=== PATIENT | male | born 1970 | race Caucasian/White ===

== ENCOUNTER 2016-10-20 05:04 | Emergency (ER) | payer OTHER ==
[~2016-10-20] VITALS: Ht 180.3 cm; Wt 94.0 kg
[2016-10-20 05:10] VITALS: Ht 180.3 cm; Wt 94.0 kg
[2016-10-20] MEDS ORDERED: LIDOCAINE/MYLANTA 40 ML BTL PO STA (06:09)
[2016-10-20] MEDS ORDERED: BELLADONNA/PHENOBARBITAL TAB PO STA (06:09)
[2016-10-20 06:25] LABS: ADD SCAN DIFF NO
--- NOTE | 2016-10-20 06:26 | ERD ---
ER Documentation Chief Complaint Date/Time DATE: 10/20/16 TIME: 06:15 Chief Complaint PT C/O EPIGASTRIC CP X 3 DAYS W/SOB (RR EVEN/UNLABORED, NAD) HPI This is a 46-year-old male who presents with gradual onset, sharp, moderate epigastric pain for 3 days. The patient states that the pain has been constant since onset, but improved significantly when he stands up and walks. The pain is exacerbated by lying down. Pain radiates up to the mid substernal area and down to the lower abdomen bilaterally. Patient also complains of mild pain in the back. Patient states that he feels short of breath, has felt slightly nauseous for the last hour and had subjective fever for the last hour. The pain has been more severe since 7 hours ago. Patient denies vomiting, diarrhea , constipation. He does acknowledge a bitter taste in his mouth. According to the patient's friend, the patient has been complaining of abdominal pain for more than 2 weeks intermittently. ROS All systems reviewed and are negative except as per history of present illness. Medications Home Meds Active Scripts Tramadol HCl (Tramadol HCl) 50 Mg Tablet, 50 MG PO Q6 Y for PAIN, #20 TAB Prov:EMILY LAURA MD 10/20/16 Famotidine* (Pepcid*) 20 Mg Tablet, 20 MG PO BID, #30 TAB Prov:EMILY LAURA MD 10/20/16 Allergies Allergies: Coded Allergies: No Known Allergy (Unverified , 10/20/16) PMhx/Soc Past medical history: None Past surgical history: Left upper extremity Social history: Denies tobacco alcohol or illicit drugs Medical and Surgical Hx: pt denies Medical Hx, pt denies Surgical Hx Smoking Status: Never smoker FmHx Family History: No coronary disease, No diabetes Physical Exam Vitals Vital Signs Date Time Temp Pulse Resp B/P Pulse Ox O2 Delivery O2 Flow Rate FiO2 10/20/16 05:10 96.0 71 18 136/89 99 Physical Exam Const: Alert, no acute distress Head: Atraumatic Eyes: Normal Conjunctiva, no pallor or icterus ENT: Normal External Ears, Nose and Mouth. Neck: Full range of motion. No JVD. No meningismus. Resp: Clear to auscultation bilaterally, no wheezes, no rales Cardio: Regular rate and rhythm, no murmurs Abd: Soft, non tender, non distended. Normal bowel sounds Skin: No petechiae or rashes Back: No midline or flank tenderness Ext: No cyanosis, or edema Neur: Awake and alert, cranial nerves II through XII intact bilaterally, patient moves and feels 4 extremities appropriately Psych: Normal Mood and Affect Result Diagram: 10/20/16 0550 10/20/16 0550 Results 24 hrs Laboratory Tests Test 10/20/16 05:50 10/20/16 08:15 White Blood Count 16.110^3/ul Red Blood Count 4.9410^6/ul Hemoglobin 14.6g/dl Hematocrit 41.7% Mean Corpuscular Volume 84.4fl Mean Corpuscular Hemoglobin 29.6pg Mean Corpuscular Hemoglobin Concent 35.0g/dl Red Cell Distribution Width 12.6% Platelet Count 50309^3/UL Mean Platelet Volume 10.3fl Neutrophils % 82.6% Lymphocytes % 11.5% Monocytes % 4.3% Eosinophils % 0.4% Basophils % 0.6% Nucleated Red Blood Cells % 0.0/100WBC Neutrophils # 13.310^3/ul Lymphocytes # 1.910^3/ul Monocytes # 0.710^3/ul Eosinophils # 0.110^3/ul Basophils # 0.110^3/ul Nucleated Red Blood Cells # 0.010^3/ul Prothrombin Time 12.4Sec Prothrombin Time Ratio 1.0 INR International Normalized Ratio 0.92 Sodium Level 142mmol/L Potassium Level 3.7mmol/L Chloride Level 101mmol/L Carbon Dioxide Level 26mmol/L Anion Gap 19 Blood Urea Nitrogen 16mg/dl Creatinine 1.23mg/dl Glucose Level 150mg/dl Calcium Level 9.6mg/dl Total Bilirubin 0.5mg/dl Direct Bilirubin 0.00mg/dl Indirect Bilirubin 0.5mg/dl Aspartate Amino Transf (AST/SGOT) 53IU/L Alanine Aminotransferase (ALT/SGPT) 122IU/L Alkaline Phosphatase 142IU/L Troponin I < 0.012ng/ml Total Protein 9.2g/dl Albumin 4.7g/dl Globulin 4.50g/dl Albumin/Globulin Ratio 1.04 Lipase 91U/L Urine Color LT. YELLOW Urine Clarity CLEAR Urine pH 8.0 Urine Specific [place] 1.015 Urine Ketones NEGATIVE Urine Nitrite NEGATIVE Urine Bilirubin NEGATIVE Urine Urobilinogen 0.2 E.U./dL Urine Leukocyte Esterase NEGATIVE Urine Microscopic RBC 2-5/HPF Urine Microscopic WBC NONE SEEN/HPF Urine Epithelial Cells OCCASIONAL Urine Bacteria RARE Urine Hemoglobin TRACE Urine Glucose NEGATIVE% Urine Total Protein 1+ Current Medications Medications (Trade) Dose Ordered Sig/Mateo Route PRN Reason Start Time Stop Time Status Last Admin Dose Admin Miscellaneous Medication (Gi Cocktail (2)) 40 ml ONCE STAT PO 10/20/16 06:09 10/20/16 06:11 DC 10/20/16 06:16 Bell[place]onna/ Phenobarbital () 2 tab ONCE STAT PO 10/20/16 06:09 10/20/16 06:11 DC 10/20/16 06:16 Acetaminophen (Tylenol Tab) 1,000 mg ONCE STAT PO 10/20/16 07:26 10/20/16 07:27 DC 10/20/16 07:43 Procedures/MDM EKG read by me: Time 518, rate 58 Rhythm: Sinus bradycardia [place]: Normal Intervals: Normal ST-T waves: no ischemic changes Ectopy: No Q-waves: No Impression: No evidence of ischemia or arrhythmia Chest x-ray: No infiltrate, see EMR for full interpretation Gallbladder ultrasound: Gallstones. Normal common bile duct, no signs of cholecystitis. MDM: Patient is a 46-year-old male who presents with epigastric pain that is intermittent for the last 2 weeks. Patient had an episode this morning that was more severe. She states that radiates both down to the lower abdomen and up into the chest, and there are features that are suggestive of GERD-like symptoms. Patient has normal vital signs. EKG is unremarkable and troponin is negative. The patient had slightly elevated LFTs so a gallbladder ultrasound was performed and shows evidence of gallstones without evidence of cholecystitis or choledocholithiasis. Chest x-ray does not show any concerning acute pathology. Serial abdominal exams are benign, and vascular exam is normal. On reassessment the patient appears significantly improved but complains of mild residual pain. I do believe that the patient's symptoms are consistent with biliary colic. I will give him prescription for tramadol and Pepcid for symptom control, have advised him on dietary changes, and have advised him on the importance of follow-up with surgery for elective cholecystectomy. I have also advised him on return precautions for symptoms concerning for cholecystitis. Departure Diagnosis: Primary Impression: Biliary colic Condition: EMILY Hazel MD Oct 20, 2016 06:25
[2016-10-20 06:37] LABS: BASOPHIL # 0.1 10^3/ul (0.0-0.1); BASOPHILS % 0.6 % (0.0-2.0); EOSINOPHILS # 0.1 10^3/ul (0.0-0.5); EOSINOPHILS % 0.4 % (0.0-7.0); HEMATOCRIT 41.7 % (42.0-52.0); HEMOGLOBIN 14.6 g/dl (14.0-18.0); LYMPHOCYTES # 1.9 10^3/ul (0.8-2.9); LYMPHOCYTES % 11.5 % (15.0-51.0); MEAN CORPUSCULAR HEMOGLOBIN 29.6 pg (29.0-33.0); MEAN CORPUSCULAR VOLUME 84.4 fl (82.0-101.0); MEAN PLATELET VOLUME 10.3 fl (7.4-10.4); MONOCYTE # 0.7 10^3/ul (0.3-0.9); MONOCYTES % 4.3 % (0.0-11.0); NEUTROPHIL # 13.3 10^3/ul (1.6-7.5); NEUTROPHILS % 82.6 % (39.0-77.0); PLATELET COUNT 325 10^3/UL (140-415); RED BLOOD COUNT 4.94 10^6/ul (4.70-6.10); RED CELL DISTRIBUTION WIDTH 12.6 % (11.5-14.5); WHITE BLOOD COUNT 16.1 10^3/ul (4.8-10.8)
[2016-10-20 06:48] LABS: ALBUMIN 4.7 g/dl (3.3-4.9); CHLORIDE 101 mmol/L (97-110)
[2016-10-20 06:49] LABS: INR 0.92; POTASSIUM 3.7 mmol/L (3.5-5.1); PROTIME 12.4 Sec (12.2-14.2); SODIUM 142 mmol/L (135-144)
[2016-10-20 06:51] LABS: ALBUMIN/GLOBULIN RATIO 1.04; ALKALINE PHOSPHATASE 142 IU/L (42-121); ANION GAP 19 (8-16); ASPARTATE AMINO TRANSFERASE 53 IU/L (15-46); BILIRUBIN,INDIRECT 0.5 mg/dl (0-1.1); BILIRUBIN,TOTAL 0.5 mg/dl (0.2-1.3); BLOOD UREA NITROGEN 16 mg/dl (7-20); CARBON DIOXIDE 26 mmol/L (21-31); CREATININE 1.23 mg/dl (0.61-1.24); GLUCOSE 150 mg/dl (70-220); TOTAL PROTEIN 9.2 g/dl (6.1-8.1)
[2016-10-20 06:52] LABS: ALANINE AMINOTRANSFERASE 122 IU/L (13-69); CALCIUM 9.6 mg/dl (8.4-10.2)
[2016-10-20 07:04] LABS: TROPONIN-I < 0.012 ng/ml (0.00-0.12)
--- NOTE | 2016-10-20 07:17 | RADRPT ---
PROCEDURE: XR Chest. CLINICAL INDICATION: Chest pain TECHNIQUE: Portable single view of the chest COMPARISON: None. FINDINGS: The heart size is top normal. Lung volumes are reduced. Prominent paratracheal soft tissues may be due to ectatic vasculature or shallow lung inflation. No definite acute infiltrate or pleural effu shayne. No bony abnormality is seen. IMPRESSION: Shallow lung inflation. No definite acute infiltrate. Prominent paratracheal soft tissues which ma y be due to shallow lung inflation or ectatic vasculature. Eventual PA and lateral views would be s uggested. RPTAT: HLBE Physician Micki Date Time Electronically viewed and signed by Bianka Pineda Physician on 10/20/2016 07:17 LE/
[2016-10-20] MEDS ORDERED: ACETAMINOPHEN 500 MG TAB PO STA (07:26)
[2016-10-20 08:29] LABS: ADD UMIC YES; URINE BILIRUBIN (Dip) NEGATIVE (NEGATIVE); URINE BLOOD (Dip) TRACE (NEGATIVE); URINE COLOR LT. YELLOW (YELLOW); URINE GLUCOSE (Dip) NEGATIVE (NEGATIVE); URINE KETONES (Dip) NEGATIVE (NEGATIVE); URINE LEUKOCYTE ESTERASE (Dip) NEGATIVE (NEGATIVE); URINE NITRITE (Dip) NEGATIVE (NEGATIVE); URINE TOTAL PROTEIN (Dip) 1+ (NEGATIVE); URINE UROBILINOGEN (Dip) 0.2 E.U./dL (0.1-1.0)
[2016-10-20 08:53] LABS: BACTERIA,URINE RARE
--- NOTE | 2016-10-20 09:36 | RADRPT ---
PROCEDURE: US Abdomen. CLINICAL INDICATION: Pain TECHNIQUE: Multiple real-time images were acquired of the patient's abdomen and retroperitoneum ut ilizing a high resolution transducer. COMPARISON: None FINDINGS: The liver demonstrates elevated echogenicity with no gross focal lesions are seen. Multiple gallston es are seen layering within the gallbladder. There is no pericholecystic fluid or gallbladder wall t hickening. No intra or extrahepatic biliary dilatation is seen. The common bile duct measures 5 mm in maximal dimension. The pancreas is obscured. No free fluid is identified. The right kidney is unremarkable without hydronephrosis. It measures 10.8 cm. Visualized portion of the aorta and IVC are unremarkable. IMPRESSION: There is fatty infiltration of the liver. Cholelithiasis without cholecystitis. RPTAT: AA .Jaja Cintron MD, MD Date Time Electronically viewed and signed by .Jaja Cintron MD, MD on 10/20/2016 09:36 .Christiana/
[2016-10-20] MEDS ORDERED: TRAM50TA2 PO (10:18)
[2016-10-20] MEDS ORDERED: FAMO-18 PO (10:18)
[2016-10-20 11:15] VITALS: BP 117/65; PULSE 77; RESP 16
== END 2016-10-20 11:20 | disposition home or self-care (01) ==
LOC: E/R 05:04
DX: K80.50 Calculus of bile duct without cholangitis or cholecystitis without obstruction (principal)
CPT/HCPCS: 36415; 71010; 76705; 80053; 81001; 83690; 84484; 85025; 85610; 93005; Z7502; Z7610; 81003

== ENCOUNTER 2016-10-25 18:32 | Emergency (ER) | payer OTHER ==
[~2016-10-25] VITALS: Ht 180.3 cm; Wt 90.0 kg
[~2016-10-25 18:32] MED LIST: FAMO-18 PO; TRAM50TA2 PO
[2016-10-25 18:44] VITALS: Ht 180.3 cm; Wt 90.0 kg
[2016-10-25] MEDS ORDERED: SOD CHLORIDE 0.9% 1,000 ML IV STA (19:24)
[2016-10-25 20:14] LABS: ADD UMIC YES; URINE BILIRUBIN (Dip) NEGATIVE (NEGATIVE); URINE BLOOD (Dip) 2+ (NEGATIVE); URINE COLOR YELLOW (YELLOW); URINE GLUCOSE (Dip) NEGATIVE (NEGATIVE); URINE KETONES (Dip) NEGATIVE (NEGATIVE); URINE LEUKOCYTE ESTERASE (Dip) NEGATIVE (NEGATIVE); URINE NITRITE (Dip) NEGATIVE (NEGATIVE); URINE TOTAL PROTEIN (Dip) 2+ (NEGATIVE); URINE UROBILINOGEN (Dip) 0.2 E.U./dL (0.1-1.0)
[2016-10-25 20:21] LABS: URINE RBCS 0-2 /HPF (0)
--- NOTE | 2016-10-25 20:29 | RADRPT ---
PROCEDURE: CT Abdomen and Pelvis without contrast. CLINICAL INDICATION: Abdominal pain TECHNIQUE: CT of the abdomen and pelvis was performed on a multi-detector scanner without IV contr ast. Coronal and sagittal images were reformatted from the axial data set. One or more of the foll owing dose reduction techniques were used: automated exposure control, adjustment of the mA and/or kV according to patient size, use of iterative reconstruction technique. CTDI = 16.49 mGy. DLP = 10 44.85 mGy-cm. COMPARISON: None. FINDINGS: CT abdomen: The lung bases are clear. The heart size is normal, without pericardial effusion. Hepatomegaly (19 cm) and hepatic fatty infiltration are noted, without evidence of focal mass. Gallbladder wall thi ckening is noted, with suggestion of trace pericholecystic edema. Biliary tree, pancreas, spleen, a drenal glands and kidneys are unremarkable. No urolithiasis or obstructive uropathy is identified. The stomach is grossly unremarkable. The aorta is of normal caliber. There is no retroperitoneal lymphadenopathy. The nikkie hepatis reg ion is clear. CT pelvis: No bowel obstruction, free intraperitoneal air or abscess is identified. The appendix is well visua lized and normal. There is no diverticulosis, diverticulitis or colitis. Urinary bladder is grossl y unremarkable. No pelvic mass, free fluid or lymphadenopathy is identified. The surrounding osseous structures are remarkable for degenerative spondylosis of the spine. No ost eolytic or osteoblastic lesion is detected. IMPRESSION: 1. Gallbladder wall is thickened, with question of trace pericholecystic edema - cholecystitis is n ot excluded. Consider ultrasound and/or nuclear medicine HIDA scan for further evaluation. 2. Hepatic steatosis and hepatomegaly are noted. 3. No mass or lymphadenopathy is identified. RPTAT: HDWR .Kristian Joe MD, Date Time Electronically viewed and signed by .Kristian Joe MD, MD on 10/25/2016 20:28 .R/
--- NOTE | 2016-10-25 20:35 | ERD ---
ER Documentation Chief Complaint Date/Time DATE: 10/25/16 TIME: 20:35 Chief Complaint MID ABDOMINAL PAIN X 2 WEEKS + NAUSEA, SENT BY MD ANTOINE This a 46-year-old male who presents to the emergency department today with his complaining of generalized abdominal pain. Patient states that he was seen by his primary care doctor at [facility], Nitin Crews MD and sent here to the emergency department for further evaluation and management. Patient's medical record from the [facility] show that the patient was diagnosed with gastroenteritis versus gastritis. Patient indicated that was requesting a CT scan for further evaluation. Patient states that this complaints and his stomach feel worse and that the doctor does not feel that the abdominal pain is related to his gallstones. Patient states that he has "lost 10 pounds in 4 days". States that he has a hard time eating solids but has been drinking liquids and soup. States that he sometimes feels dizzy. States that he has been having diarrhea. He has some nausea but no vomiting. States he has not taken the tramadol or Zofran that he was prescribed on his last visit. Denies any fevers or chills. ROS All systems reviewed and are negative except as per history of present illness. Medications Home Meds Active Scripts Ondansetron Hcl* (Zofran*) 4 Mg Tablet, 4 MG PO Q6H for NAUSEA AND/OR VOMITING, #30 TAB Prov:MARTIN SCHREIBER PA-C 10/25/16 Dicyclomine Hcl* (Bentyl*) 10 Mg Capsule, 10 MG PO QID, #30 CAP Prov:MARTIN SCHREIBER PA-C 10/25/16 Tramadol HCl (Tramadol HCl) 50 Mg Tablet, 50 MG PO Q6 Y for PAIN, #20 TAB Prov:EMILY LAURA MD 10/20/16 Famotidine* (Pepcid*) 20 Mg Tablet, 20 MG PO BID, #30 TAB Prov:EMILY LAURA MD 10/20/16 Allergies Allergies: Coded Allergies: No Known Allergy (Unverified , 10/20/16) PMhx/Soc Hx Alcohol Use: No Hx Substance Use: No Hx Tobacco Use: No Smoking Status: Never smoker Physical Exam Vitals Vital Signs Date Time Temp Pulse Resp B/P Pulse Ox O2 Delivery O2 Flow Rate FiO2 10/25/16 18:44 98.2 98 16 150/86 96 Physical Exam Const: Nontoxic-appearing Head: Atraumatic Eyes: Normal Conjunctiva ENT: Normal External Ears, Nose and Mouth. Neck: Full range of motion..~ No meningismus. Resp: Clear to auscultation bilaterally Cardio: Regular rate and rhythm, no murmurs Abd: Soft, mild generalized abdominal tenderness that is nonspecific non distended. Normal bowel sounds. No tenderness McBurney's. No rebound tenderness. Mild epigastric tenderness. Skin: No petechiae or rashes Back: No midline or flank tenderness Ext: No cyanosis, or edema Neur: Awake and alert Psych: Normal Mood and Affect Result Diagram: 10/25/16194410/25/161944 Results 24 hrs Laboratory Tests Test 10/25/16 19:45 White Blood Count 7.210^3/ul Red Blood Count 5.1510^6/ul Hemoglobin 15.3g/dl Hematocrit 43.7% Mean Corpuscular Volume 84.9fl Mean Corpuscular Hemoglobin 29.7pg Mean Corpuscular Hemoglobin Concent 35.0g/dl Red Cell Distribution Width 12.6% Platelet Count 25646^3/UL Mean Platelet Volume 10.1fl Neutrophils % 63.5% Lymphocytes % 21.4% Monocytes % 13.0% Eosinophils % 1.2% Basophils % 0.3% Nucleated Red Blood Cells % 0.0/100WBC Neutrophils # 4.610^3/ul Lymphocytes # 1.610^3/ul Monocytes # 0.910^3/ul Eosinophils # 0.110^3/ul Basophils # 0.010^3/ul Nucleated Red Blood Cells # 0.010^3/ul Urine Color YELLOW Urine Clarity CLEAR Urine pH 5.5 Urine Specific [place] >=1.030 Urine Ketones NEGATIVE Urine Nitrite NEGATIVE Urine Bilirubin NEGATIVE Urine Urobilinogen 0.2 E.U./dL Urine Leukocyte Esterase NEGATIVE Urine Microscopic RBC 0-2/HPF Urine Microscopic WBC 0-2/HPF Urine Hyaline Casts OCCASIONAL Urine Hemoglobin 2+ Urine Glucose NEGATIVE% Urine Total Protein 2+ Sodium Level 137mmol/L Potassium Level 3.6mmol/L Chloride Level 105mmol/L Carbon Dioxide Level 19mmol/L Anion Gap 17 Blood Urea Nitrogen 14mg/dl Creatinine 1.32mg/dl Glucose Level 117mg/dl Calcium Level 9.2mg/dl Total Bilirubin 0.4mg/dl Direct Bilirubin 0.00mg/dl Indirect Bilirubin 0.4mg/dl Aspartate Amino Transf (AST/SGOT) 66IU/L Alanine Aminotransferase (ALT/SGPT) 190IU/L Alkaline Phosphatase 200IU/L Total Protein 9.1g/dl Albumin 4.5g/dl Globulin 4.60g/dl Albumin/Globulin Ratio 0.97 Lipase 122U/L Current Medications Medications (Trade) Dose Ordered Sig/Mateo Route PRN Reason Start Time Stop Time Status Last Admin Dose Admin Sodium Chloride (NS) 1,000 ml @ 1,000 mls/hr Q1H STAT IV 10/25/16 19:24 10/25/16 20:23 DC 10/25/16 20:06 DIAGNOSTIC IMAGING REPORT Patient: KLAUDIA REESE : 1970 Age: 46 Sex: M MR #: [id number] DOS: 10/25/161923 Ordering MD: MARTIN SCHREIBER PA-C Location: E Room/Bed: PROCEDURE: CT Abdomen and Pelvis without contrast. CLINICAL INDICATION: Abdominal pain TECHNIQUE: CT of the abdomen and pelvis was performed on a multi-detector scanner without IV contrast. Coronal and sagittal images were reformatted from the axial data set. One or more of the following dose reduction techniques were used: automated exposure control, adjustment of the mA and/or kV according to patient size, use of iterative reconstruction technique. CTDI = 16.49 mGy. DLP = 1044.85 mGy-cm. COMPARISON: None. FINDINGS: CT abdomen: The lung bases are clear. The heart size is normal, without pericardial effusion. Hepatomegaly (19 cm) and hepatic fatty infiltration are noted, without evidence of focal mass. Gallbladder wall thickening is noted, with suggestion of trace pericholecystic edema. Biliary tree, pancreas, spleen, adrenal glands and kidneys are unremarkable. No urolithiasis or obstructive uropathy is identified. The stomach is grossly unremarkable. The aorta is of normal caliber. There is no retroperitoneal lymphadenopathy. The nikkie hepatis region is clear. CT pelvis: No bowel obstruction, free intraperitoneal air or abscess is identified. The appendix is well visualized and normal. There is no diverticulosis, diverticulitis or colitis. Urinary bladder is grossly unremarkable. No pelvic mass, free fluid or lymphadenopathy is identified. The surrounding osseous structures are remarkable for degenerative spondylosis of the spine. No osteolytic or osteoblastic lesion is detected. IMPRESSION: 1. Gallbladder wall is thickened, with question of trace pericholecystic edema - cholecystitis is not excluded. Consider ultrasound and/or nuclear medicine HIDA scan for further evaluation. 2. Hepatic steatosis and hepatomegaly are noted. 3. No mass or lymphadenopathy is identified. RPTAT: HDWR .Kristian Joe MD, MD Date Time Electronically viewed and signed by .Kristian Joe MD, MD on 10/25/2016 20: 28 .R/ CC: MARTIN SCHREIBER PA-C DIAGNOSTIC IMAGING REPORT Patient: KLAUDIA REESE : 1970 Age: 46 Sex: M MR #: [id number] DOS: 10/25/16 0000 Ordering MD: MARTIN SCHREIBER PA-C Location: FTE Room/Bed: PROCEDURE: Right upper quadrant abdominal ultrasound. CLINICAL INDICATION: Abdominal pain TECHNIQUE: Salvador scale and color doppler ultrasound images of the right upper quadrant. COMPARISON: CT abdomen pelvis 10/25/2016, abdominal ultrasound 10/20/2016 FINDINGS: Pancreas: Visualized portions appear of normal echogenicity, no focal lesions. Liver: Morphology: Mildly enlarged measuring 17.8 cm. Echogenicity: Increased echogenicity of the liver parenchyma suggestive of hepatic steatosis. Focal lesions: None. Main portal vein: Patent with hepatopetal flow. Biliary System: Gallbladder appears contracted with wall thickness measuring the upper limits of normal at 3 mm. Gallbladder appears filled with gallstones. No intrahepatic biliary dilatation. Common bile duct measures 4.6 mm in maximal dimension. Kidneys: Right 10.7 cm in length. Right renal cortical thickness is preserved. Normal echogenicity. No hydronephrosis. No renal calculi. No focal lesions. No free fluid identified. IMPRESSION: Gallbladder is filled with gallstones. Gallbladder wall thickness is upper limits of normal; early cholecystitis is not completely excluded. If clinical concern for cholecystitis HIDA scan may be useful for further evaluation. Normal caliber intrahepatic and extrahepatic biliary system. RPTAT: AADD .Neto Lauren MD, Date Time Electronically viewed and signed by .Neto Lauren MD, MD on 10/25/2016 21:02 .B/ CC: MARTIN SCHREIBER PA-C Procedures/[facility] This a 46-year-old male who presents to the emergency department today complaining of generalized abdominal discomfort, weight loss of "10 pounds in 4 days", diarrhea and some nausea. Patient was seen here on October 20, 2016 a proximal he 1 week ago and had a full workup at that time given his complaints of epigastric pain. His EKG was negative. His laboratory work showed some elevated LFTs and therefore the decision ordered a ultrasound that showed gallstones with no acute cholecystitis. Patient was diagnosed with biliary colic and was discharged home with tramadol and Pepcid. Given that patient was sent here by his primary care doctor I did obtain laboratory work as well as imaging. Laboratory work shows no elevated white blood cell count. He is not anemic. Platelets are within normal limits. Electrolytes are within normal limits. Glucose within normal limits. Liver function is elevated from previous visit approximately 1 week ago. Lipase within normal limits. UA is negative for infection CT abdomen pelvis shows gallbladder wall thickened with question of trace pericholecystic edema. Cholecystitis cannot be excluded. There is hepatic steatosis hepatomegaly noted. There is no mass or lymphadenopathy. There is no bowel obstruction, free air or abscess. Appendix is well-visualized. There is no diverticulosis diverticulitis or colitis. Right upper quadrant ultrasound shows that the gallbladder is filled with gallstones. The gallbladder wall thickness is upper limits of normal. An early cholecystitis cannot be completely excluded. There is no intrahepatic biliary dilatation. There is no free fluid identified. Patient abdominal pain that is centrally located is of uncertain etiology however it is most likely related to his gallstones and biliary colic. Patient was given IV fluids here in the emergency department given his complaints of feeling weak. Patient was not really complaining of any pain was not given any pain medication and in fact declined it prior to discharge. I have explained all results to the patient did have explained to him that he does need to see a general surgeon to have his gallbladder removed. I have explained to him he does need to follow back up with his primary care doctor in regards to this with all of his information. I instructed the patient to take the tramadol at home if he had any pain. He was given a prescription for Zofran and Bentyl. Discussed the patient with Dr. Lowe and he is in agreement with the plan. Departure Diagnosis: Primary Impression: Biliary colic Condition: Fair MARTIN SCHREIBER PA-C October 25, 2016 20:35
[2016-10-25 20:41] LABS: ADD SCAN DIFF NO
[2016-10-25 20:43] LABS: BASOPHILS % 0.3 % (0.0-2.0); EOSINOPHILS # 0.1 10^3/ul (0.0-0.5); EOSINOPHILS % 1.2 % (0.0-7.0); HEMATOCRIT 43.7 % (42.0-52.0); HEMOGLOBIN 15.3 g/dl (14.0-18.0); LYMPHOCYTES # 1.6 10^3/ul (0.8-2.9); LYMPHOCYTES % 21.4 % (15.0-51.0); MEAN CORPUSCULAR HEMOGLOBIN 29.7 pg (29.0-33.0); MEAN CORPUSCULAR VOLUME 84.9 fl (82.0-101.0); MEAN PLATELET VOLUME 10.1 fl (7.4-10.4); MONOCYTE # 0.9 10^3/ul (0.3-0.9); NEUTROPHIL # 4.6 10^3/ul (1.6-7.5); NEUTROPHILS % 63.5 % (39.0-77.0); PLATELET COUNT 320 10^3/UL (140-415); RED BLOOD COUNT 5.15 10^6/ul (4.70-6.10); RED CELL DISTRIBUTION WIDTH 12.6 % (11.5-14.5); WHITE BLOOD COUNT 7.2 10^3/ul (4.8-10.8)
--- NOTE | 2016-10-25 21:02 | RADRPT ---
PROCEDURE: Right upper quadrant abdominal ultrasound. CLINICAL INDICATION: Abdominal pain TECHNIQUE: Salvador scale and color doppler ultrasound images of the right upper quadrant. COMPARISON: CT abdomen pelvis 10/25/2016, abdominal ultrasound 10/20/2016 FINDINGS: Pancreas: Visualized portions appear of normal echogenicity, no focal lesions. Liver: Morphology: Mildly enlarged measuring 17.8 cm. Echogenicity: Increased echogenicity of the liver parenchyma suggestive of hepatic steatosis. Focal lesions: None. Main portal vein: Patent with hepatopetal flow. Biliary System: Gallbladder appears contracted with wall thickness measuring the upper limits of normal at 3 mm. Gallbladder appears filled with gallstones. No intrahepatic biliary dilatation. Common bile duct measures 4.6 mm in maximal dimension. Kidneys: Right 10.7 cm in length. Right renal cortical thickness is preserved. Normal echogenicity. No hydronephrosis. No renal calculi. No focal lesions. No free fluid identified. IMPRESSION: Gallbladder is filled with gallstones. Gallbladder wall thickness is upper limits of normal; early cholecystitis is not completely excluded . If clinical concern for cholecystitis HIDA scan may be useful for further evaluation. Normal caliber intrahepatic and extrahepatic biliary system. RPTAT: AADD .Neto Lauren MD, MD Date Time Electronically viewed and signed by .Neto Lauren MD, on 10/25/2016 21:02 .B/
[2016-10-25 21:05] LABS: ALBUMIN 4.5 g/dl (3.3-4.9); ALBUMIN/GLOBULIN RATIO 0.97; BILIRUBIN,INDIRECT 0.4 mg/dl (0-1.1); BILIRUBIN,TOTAL 0.4 mg/dl (0.2-1.3); CALCIUM 9.2 mg/dl (8.4-10.2); CREATININE 1.32 mg/dl (0.61-1.24); POTASSIUM 3.6 mmol/L (3.5-5.1); TOTAL PROTEIN 9.1 g/dl (6.1-8.1)
[2016-10-25] MEDS ORDERED: ONDA4TAB8 PO (21:41)
[2016-10-25] MEDS ORDERED: DICY10CA60 PO (21:41)
== END 2016-10-25 21:59 | disposition home or self-care (01) ==
LOC: FTE 18:32
DX: K80.50 Calculus of bile duct without cholangitis or cholecystitis without obstruction (principal); R11.0 Nausea
CPT/HCPCS: 74176; 76705; 80053; 81001; 83690; 85025; J7030; 36415; 81003

== ENCOUNTER 2016-11-30 13:46 | Emergency (ER) | payer OTHER ==
[~2016-11-30] VITALS: Ht 175.3 cm; Wt 91.0 kg
[~2016-11-30 13:46] MED LIST changes: +DICY10CA60 PO; +ONDA4TAB8 PO
[2016-11-30 13:49] VITALS: Ht 175.3 cm; Wt 91.0 kg
[2016-11-30 15:28] LABS: ADD SCAN DIFF NO
[2016-11-30 15:31] LABS: BASOPHIL # 0.1 10^3/ul (0.0-0.1); BASOPHILS % 0.6 % (0.0-2.0); EOSINOPHILS # 0.1 10^3/ul (0.0-0.5); EOSINOPHILS % 0.4 % (0.0-7.0); HEMATOCRIT 40.7 % (42.0-52.0); HEMOGLOBIN 13.9 g/dl (14.0-18.0); LYMPHOCYTES # 1.5 10^3/ul (0.8-2.9); MEAN CORPUSCULAR HEMOGLOBIN 29.2 pg (29.0-33.0); MEAN CORPUSCULAR HGB CONC 34.2 g/dl (32.0-37.0); MEAN CORPUSCULAR VOLUME 85.5 fl (82.0-101.0); MEAN PLATELET VOLUME 10.2 fl (7.4-10.4); MONOCYTE # 0.8 10^3/ul (0.3-0.9); MONOCYTES % 4.9 % (0.0-11.0); NEUTROPHIL # 14.5 10^3/ul (1.6-7.5); NEUTROPHILS % 84.6 % (39.0-77.0); PLATELET COUNT 260 10^3/UL (140-415); RED BLOOD COUNT 4.76 10^6/ul (4.70-6.10); RED CELL DISTRIBUTION WIDTH 12.6 % (11.5-14.5); WHITE BLOOD COUNT 17.1 10^3/ul (4.8-10.8)
--- NOTE | 2016-11-30 15:51 | RADRPT ---
PROCEDURE: Right Upper Quadrant Ultrasound. CLINICAL INDICATION: RUQ pain TECHNIQUE: Multiple real-time images were acquired of the patient's right upper quadrant abdomen a nd retroperitoneum utilizing a high resolution transducer. COMPARISON: Gallbladder ultrasound from 10/25/2016 FINDINGS: The liver measures 16.8 cm, and demonstrates diffusely increased echogenicity. The main portal vein is patent with proper directional flow. There is no intrahepatic biliary ductal dilatation. The extr ahepatic common bile duct measures 4 mm. There is cholelithiasis. There is mild nonspecific gallbladder wall thickening to 4 mm. There is n o pericholecystic fluid. The visualized pancreas is unremarkable. The right kidney measures 10.1 cm and demonstrates normal echotexture. There is no right renal calcu kim or hydronephrosis. The visualized abdominal aorta and IVC are grossly unremarkable. IMPRESSION: Mild hepatomegaly with severe fatty infiltration. Cholelithiasis with mild nonspecific gallbladder wall thickening and no pericholecystic fluid. Acut e cholecystitis is considered unlikely though not entirely excluded. If clinical suspicion for acut e cholecystitis persists, a HIDA scan or MRCP can be obtained for further evaluation. Normal CBD. RPTAT: EE Physician Chong Date Time Electronically viewed and signed by Physician Chong on 11/30/2016 15:51 /
[2016-11-30 15:58] LABS: ALBUMIN 4.6 g/dl (3.3-4.9); ALBUMIN/GLOBULIN RATIO 1.31; BILIRUBIN,INDIRECT 0.5 mg/dl (0-1.1); BILIRUBIN,TOTAL 0.5 mg/dl (0.2-1.3); CREATININE 1.09 mg/dl (0.61-1.24); POTASSIUM 3.9 mmol/L (3.5-5.1); TOTAL PROTEIN 8.1 g/dl (6.1-8.1)
[2016-11-30] MEDS ORDERED: RANI150T9 PO (16:42)
[2016-11-30] MEDS ORDERED: HYDR-906 PO (16:42)
[2016-11-30] MEDS ORDERED: CIPR500T4 PO (16:42)
[2016-11-30 16:51] VITALS: BP 122/67; PULSE 75; RESP 19; TEMP 97.2
--- NOTE | 2016-11-30 17:21 | ERD ---
ER Documentation Chief Complaint Date/Time DATE: 11/30/16 TIME: 17:18 Chief Complaint Complains of abdominal pain Hx of gall stones HPI 38-year-old male with a history of gallstones comes emergency department with epigastric and right upper quadrant abdominal pain that started this afternoon at approximately 1:00 PM. Patient states that he was eating an egg sandwich at approximately 11 AM and 2 hours later developed abdominal pain. It is in the epigastric region, he describes as "uncomfortable" and radiated to the right upper quadrant. At this time he states his pain is much better, he did not take anything for pain. He denies any fever, chills, nausea, vomiting. No chest pain or shortness of breath. This patient has an elective cholecystectomy for next which is 6 days from now with Dr. Abebe. ROS All systems reviewed and are negative except as per history of present illness. Medications Home Meds Active Scripts Hydrocodone/Acetaminophen ([place] 5-325 Tablet) 1 Each Tablet, 1 TAB PO Q6H Y for PAIN, #7 TAB Prov:RAVEN PINA PA-C 11/30/16 Ranitidine Hcl* (Zantac*) 150 Mg Tablet, 150 MG PO BID Y for EPIGASTRIC PAIN, # 30 TAB Prov:RAVEN PINA PA-C 11/30/16 Ciprofloxacin Hcl* (Ciprofloxacin Hcl*) 500 Mg Tablet, 500 MG PO BID for 7 Days , TAB Prov:RAVEN PINA PA-C 11/30/16 Ondansetron Hcl* (Zofran*) 4 Mg Tablet, 4 MG PO Q6H for NAUSEA AND/OR VOMITING, #30 TAB Prov:MARTIN SCHREIBER PA-C 10/25/16 Dicyclomine Hcl* (Bentyl*) 10 Mg Capsule, 10 MG PO QID, #30 CAP Prov:MARTIN SCHREIBER PA-C 10/25/16 Tramadol HCl (Tramadol HCl) 50 Mg Tablet, 50 MG PO Q6 Y for PAIN, #20 TAB Prov:EMILY LAURA MD 10/20/16 Famotidine* (Pepcid*) 20 Mg Tablet, 20 MG PO BID, #30 TAB Prov:EMILY LAURA MD 10/20/16 Allergies Allergies: Coded Allergies: No Known Allergy (Unverified , 10/20/16) PMhx/Soc Hx Alcohol Use: No Hx Substance Use: No Hx Tobacco Use: No Smoking Status: Never smoker Physical Exam Vitals Vital Signs Date Time Temp Pulse Resp B/P Pulse Ox O2 Delivery O2 Flow Rate FiO2 11/30/16 16:51 97.2 75 19 122/67 100 Room Air 11/30/16 13:49 98.3 63 20 141/71 99 Physical Exam General: Well-developed, well-nourished. The patient appears in no acute distress. HEENT: Head is normocephalic, atraumatic. No scleral icterus. Neck: Supple. Nontender. Lungs: Clear to auscultation. Normal air movement. Heart: Regular rate and rhythm. S1 and S2 are normal. No murmurs, gallops, or rubs. Abdomen: Soft, epigastrium is tender, negative Foy sign, nondistended. Bowel sounds are normoactive. Extremities: No clubbing or cyanosis. Normal pulses. Moving extremities x 4. No weakness. Neurologic: Alert and oriented 3. No focal deficits. Skin: Normal turgor. No rash or lesions. No jaundice Result Diagram: 11/30/16 1515 11/30/16 1515 Results 24 hrs Laboratory Tests Test 11/30/16 15:15 White Blood Count 17.110^3/ul Red Blood Count 4.7610^6/ul Hemoglobin 13.9g/dl Hematocrit 40.7% Mean Corpuscular Volume 85.5fl Mean Corpuscular Hemoglobin 29.2pg Mean Corpuscular Hemoglobin Concent 34.2g/dl Red Cell Distribution Width 12.6% Platelet Count 75570^3/UL Mean Platelet Volume 10.2fl Neutrophils % 84.6% Lymphocytes % 9.0% Monocytes % 4.9% Eosinophils % 0.4% Basophils % 0.6% Nucleated Red Blood Cells % 0.0/100WBC Neutrophils # 14.510^3/ul Lymphocytes # 1.510^3/ul Monocytes # 0.810^3/ul Eosinophils # 0.110^3/ul Basophils # 0.110^3/ul Nucleated Red Blood Cells # 0.010^3/ul Sodium Level 142mmol/L Potassium Level 3.9mmol/L Chloride Level 106mmol/L Carbon Dioxide Level 26mmol/L Anion Gap 14 Blood Urea Nitrogen 12mg/dl Creatinine 1.09mg/dl Glucose Level 98mg/dl Calcium Level 9.0mg/dl Total Bilirubin 0.5mg/dl Direct Bilirubin 0.00mg/dl Indirect Bilirubin 0.5mg/dl Aspartate Amino Transf (AST/SGOT) 87IU/L Alanine Aminotransferase (ALT/SGPT) 109IU/L Alkaline Phosphatase 146IU/L Total Protein 8.1g/dl Albumin 4.6g/dl Globulin 3.50g/dl Albumin/Globulin Ratio 1.31 Lipase 87U/L Patient: KLAUDIA REESE : 1970 Age: 46 Sex: M MR #: [id number] DOS: 11/30/16 1459 Ordering MD: RAVEN PINA PA-C Location: [facility] Room/Bed: PROCEDURE: Right Upper Quadrant Ultrasound. CLINICAL INDICATION: RUQ pain TECHNIQUE: Multiple real-time images were acquired of the patient's right upper quadrant abdomen and retroperitoneum utilizing a high resolution transducer. COMPARISON: Gallbladder ultrasound from 10/25/2016 FINDINGS: The liver measures 16.8 cm, and demonstrates diffusely increased echogenicity. The main portal vein is patent with proper directional flow. There is no intrahepatic biliary ductal dilatation. The extrahepatic common bile duct measures 4 mm. There is cholelithiasis. There is mild nonspecific gallbladder wall thickening to 4 mm. There is no pericholecystic fluid. The visualized pancreas is unremarkable. The right kidney measures 10.1 cm and demonstrates normal echotexture. There is no right renal calculus or hydronephrosis. The visualized abdominal aorta and IVC are grossly unremarkable. IMPRESSION: Mild hepatomegaly with severe fatty infiltration. Cholelithiasis with mild nonspecific gallbladder wall thickening and no pericholecystic fluid. Acute cholecystitis is considered unlikely though not entirely excluded. If clinical suspicion for acute cholecystitis persists, a HIDA scan or MRCP can be obtained for further evaluation. Normal CBD. RPTAT: EE Physician Chong Date Time Electronically viewed and signed by Physician Chong on 11/30/2016 15:51 RA/ CC: RAVEN PINA PA-C Procedures/MDM MDM: 46-year-old male comes in with epigastric abdominal pain that started 2 hours after eating, this is likely from gastritis. He has not had any fever, vomiting. Leukocytosis is nonspecific given his clinical presentation is benign. Serial abdominal examinations were done, he does not have any Foy sign, he rather he describes as discomfort after eating in epigastrium. There is mild transaminitis, however no evidence of pancreatitis. Gallbladder ultrasound shows small amount of pericholecystic fluid, no gallbladder moderate thickening. I believe patient's presentation is likely from biliary colic. This was discussed with my attending physician, who agrees that patient may be discharged an outpatient basis. He has follow-up in 6 days to have an elective cholecystectomy. He is to return if he has worsening symptoms include fever, jaundice, vomiting, abdominal pain. The case was reviewed and discussed with Dr. Luna who agrees with the plan of care including labs, treatment, and advanced imaging as appropriate. Departure Diagnosis: Primary Impression: Biliary colic Condition: Good Patient Instructions: Biliary Colic With Gallstone (Confirmed) Additional Instructions: Follow-up with your surgeon next . Return sooner if any worsening or new symptoms including fever, vomiting. Recommend low-fat diet. RAVEN PINA PA-C Nov 30, 2016 17:21
== END 2016-11-30 16:52 | disposition home or self-care (01) ==
LOC: FTE 13:46
DX: K80.50 Calculus of bile duct without cholangitis or cholecystitis without obstruction (principal)
CPT/HCPCS: 76705; 80053; 83690; 85025

== ENCOUNTER 2016-12-06 10:12 | Day surgery (SDC) | payer OTHER ==
[2016-12-05 13:28] VITALS: BMI 28.2
[~2016-12-06] VITALS: Ht 180.3 cm; Wt 89.8 kg
[2016-12-06] VITALS (21 sets, daily range): BP systolic 112–179; BP diastolic 64–98; PULSE 52–96; RESP 7–27; Ht 180.3 cm; Wt 89.8 kg
[~2016-12-06 10:12] MED LIST changes: +CEFAZOLIN 2 GM/50 ML (PMX) 50 ML IVPB SCH; +CIPR500T4 PO; +HYDR-906 PO; +RANI150T9 PO; +SOD CHLORIDE 0.9% 1,000 ML IV SCH
[2016-12-06] MEDS ORDERED: FAMO20TA18 PO (11:47)
[2016-12-06] MEDS ORDERED: RANI150T5 PO (11:47)
[2016-12-06] MEDS ORDERED: CIPR500T4 PO (11:47)
[2016-12-06] MEDS ORDERED: ROPIVACAINE 0.5 % 30 ML VIAL ONE (13:13)
[2016-12-06] MEDS ORDERED: MIDAZOLAM 1 MG/ML 2 ML INJ ONE (13:13)
[2016-12-06] MEDS ORDERED: ROPIVACAINE 0.2% 20 ML VIAL ONE (13:13)
[2016-12-06] MEDS ORDERED: PROPOFOL 20 ML ONE (13:13)
[2016-12-06] MEDS ORDERED: FENTAnyl 50 MCG/ML VIAL ONE (13:13)
[2016-12-06] MEDS ORDERED: ROCURONIUM 50 MG INJ ONE ×2 (13:13→14:44)
[2016-12-06] MEDS ORDERED: METOCLOPRAMIDE 10 MG INJ ONE (13:58)
[2016-12-06] MEDS ORDERED: KETOROLAC 30 MG INJ ONE (13:58)
[2016-12-06] MEDS ORDERED: DEXAMETHASONE 4 MG/ML 1 ML INJ ONE (13:58)
[2016-12-06] MEDS ORDERED: ONDANSETRON 4 MG INJ ONE (13:58)
[2016-12-06] MEDS ORDERED: CEFAZOLIN 1 GM INJ ONE (13:58)
[2016-12-06] MEDS ORDERED: ONDANSETRON 4 MG INJ IV PRN (14:30)
[2016-12-06] MEDS ORDERED: LABETALOL HCL 20MG INJ IV PRN (14:30)
[2016-12-06] MEDS ORDERED: MEPERIDINE 25 MG INJ IV PRN (14:30)
[2016-12-06] MEDS ORDERED: METOCLOPRAMIDE 10 MG INJ IV PRN (14:30)
[2016-12-06] MEDS ORDERED: EPHEDrine SULFATE 50 MG/5 ML SYG IV PRN (14:30)
[2016-12-06] MEDS ORDERED: DIPHENHYDRAMINE 50 MG INJ IV PRN (14:30)
[2016-12-06] MEDS ORDERED: morphine (1 MG/ML) 10ML SYRINGE IV PRN ×3 (14:30)
[2016-12-06] MEDS ORDERED: HYDROmorphONE (0.2 MG/ML) 10ML SYG IV PRN ×2 (14:30)
[2016-12-06] MEDS ORDERED: OXYCODONE/ACETAMINOPHEN (5/325) TAB PO PRN ×2 (14:30)
[2016-12-06] MEDS ORDERED: NEOSTIGMINE 3 MG/3 ML SYRINGE ONE (14:45)
[2016-12-06] MEDS ORDERED: GLYCOPYRROLATE 0.4 MG INJ ONE (14:45)
--- NOTE | 2016-12-06 14:56 | OPR ---
Date/Time of Note Date/Time of Note DATE: 12/06/16 TIME: 14:56 Operative Report Preoperative Diagnosis symptomatic gallstones and liver RAYA Postoperative Diagnosis same Operation/Procedure Performed lap gregorio wedge liver biopsy Surgeon: Sonia STATON Specimens gallbladder and liver wedge biopsy seg 5 Sonia STATON Dec 06, 2016 14:56
[2016-12-06] MEDS ORDERED: HYDROCODONE/APAP (5/325) TAB PO ONE (15:00)
--- NOTE | 2016-12-06 15:19 | OPR ---
DATE OF OPERATION: 12/06/2016 INDICATIONS: This is a 38-year-old male with symptomatic gallstones and liver RAYA on imaging. He requests surgical excision of his gallbladder and wedge liver biopsy. Risks, alternatives, benefits , and personnel were discussed with the patient expressed understanding and consents to the operatio n. PREOPERATIVE DIAGNOSIS: Symptomatic gallstones and liver nonalcoholic steatohepatitis. POSTOPERATIVE DIAGNOSIS: Symptomatic gallstones and liver nonalcoholic steatohepatitis. OPERATION: 1. Laparoscopic cholecystectomy. CPT code 70818. 2. Wedge liver biopsy, CPT code 12132. SURGEON: Kingsley Staton MD SPECIMENS: Gallbladder and wedge liver biopsy. COMPLICATIONS: None. ANESTHESIA: General. PROCEDURE: The patient was taken to the OR and prepped and draped in the usual sterile fashion. Gutiérrez rgical timeout was performed. IV antibiotics were given. Infraumbilical incision is made with a 15 blade. Dissection cautery was carried down to the fascia which was divided with curved Leo scisso rs. An 0 Vicryl U-stitch was placed into the fascia. Balloon Bea trocar was introduced and pneu moperitoneum was established. Midepigastric 12 mm optical trocar and right upper quadrant and right upper flank 5 mm optical trocars were placed under direct visualization. Upon initial inspection, there were some adhesions to the gallbladder. The cystic duct was identified. The critical view wa s established. The cystic duct was divided using a 35 mm [place] vascular stapler. The cystic arsh ry was divided using a 35 mm [place] vascular load stapler. Additional clips were placed to reinfor ce it and the gallbladder was taken off the gallbladder bed. Gallbladder was retrieved using EndoCa tch bag. Attention was then paid to the liver and wedge liver biopsies performed with scissor caute ry in segment 5. There was good hemostasis. This was also sent for specimen. The ports were remov ed under direct visualization. An 0 Vicryl U-stitch was tied down. Skin was closed using skin sta ples. Dry dressings were applied. Dictated By: KINGSLEY STATON MD SB/NOE Conf#: [id number] DID#: [id number]
[2016-12-06] MEDS ORDERED: IPRATROPIUM (NEB) 0.5 MG/2.5 ML AMP HHN ONE (15:30)
[2016-12-06] MEDS: HYDROmorphONE (0.2 MG/ML) 10ML SYG IV PRN ×2 (16:13→16:22)
== END 2016-12-06 17:42 | disposition home or self-care (01) ==
LOC: SDS 10:12 → MERGE 10:12 → SDS 10:17
PROVIDERS: ATTEND Surgery
DX: K80.10 Calculus of gallbladder with chronic cholecystitis without obstruction (principal); K76.0 Fatty (change of) liver, not elsewhere classified
CPT/HCPCS: 47100; 47562; 88304; 88307; 88313; 94640; J0690; J1100; J1170; J1885; J2250; J2405; J2710; J2765; J2795; J3010; Z7512; Z7610

== ENCOUNTER 2017-04-14 10:32 | Emergency (ER) | payer OTHER ==
[~2017-04-14] VITALS: Wt 80.0 kg
[~2017-04-14 10:32] MED LIST changes: -CEFAZOLIN 2 GM/50 ML (PMX) 50 ML IVPB SCH; -FAMO-18 PO; +FAMO-96 PO; +FAMO20TA18 PO; +RANI150T5 PO; -SOD CHLORIDE 0.9% 1,000 ML IV SCH
--- NOTE | 2017-04-14 11:56 | ERD ---
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 The patient denies history of herpes simplex infection, no history of previous episodes. The patient has not received treatment or seek medical attention for this problem. Denies fevers, chills, no headaches, no ocular problems like eye pain, no ear pain. ROS SYSTEMIC symptoms: No fever, no chills, no night sweats EYE symptoms: No eyesight problems. OTOLARYNGEAL symptoms: No hearing loss. CARDIOVASCULAR symptoms: No chest pain or discomfort, no palpitations. PULMONARY symptoms: No dyspnea, no cough, no wheezing. GASTROINTESTINAL symptoms: No abdominal pain, no nausea, no vomiting SKIN no rashes MUSCULOSKELETAL symptoms: No arthralgias, no muscle aches. NEUROLOGY symptoms: No confusion, no syncope, no numbness or tingling. All systems reviewed and are negative except as per history of present illness. Medications Home Meds Active Scripts Prednisone* (Prednisone*) 20 Mg Tab, 40 MG PO DAILY for 5 Days, TAB Prov:VIVI CHASE MD 04/14/17 Acyclovir* (Zovirax*) 800 Mg Tablet, 800 MG PO 5 TIMES DAILY for 7 Days, TAB Prov:VIVI CHASE MD 04/14/17 Hydrocodone/Acetaminophen ([place] 5-325 Tablet) 1 Each Tablet, 1 TAB PO Q6H Y for PAIN, #7 TAB Prov:RAVEN PINA PA-C 11/30/16 Ranitidine Hcl* (Zantac*) 150 Mg Tablet, 150 MG PO BID Y for EPIGASTRIC PAIN, # 30 TAB Prov:RAVEN PINA PA-C 11/30/16 Ciprofloxacin Hcl* (Ciprofloxacin Hcl*) 500 Mg Tablet, 500 MG PO BID for 7 Days , TAB Prov:RAVEN PINA PA-C 11/30/16 Ondansetron Hcl* (Zofran*) 4 Mg Tablet, 4 MG PO Q6H for NAUSEA AND/OR VOMITING, #30 TAB Prov:MARTIN SCHREIBER PA-C 10/25/16 Dicyclomine Hcl* (Bentyl*) 10 Mg Capsule, 10 MG PO QID, #30 CAP Prov:MARTIN SCHREIBER PA-C 10/25/16 Tramadol HCl (Tramadol HCl) 50 Mg Tablet, 50 MG PO Q6 Y for PAIN, #20 TAB Prov:EMILY LAURA MD 10/20/16 Famotidine* (Pepcid*) 20 Mg Tablet, 20 MG PO BID, #30 TAB Prov:EMILY LAURA MD 10/20/16 Reported Medications Ranitidine Hcl* (Ranitidine Hcl*) 150 Mg Tablet, 150 MG PO HS, #30 TAB 12/06/16 Ciprofloxacin Hcl* (Ciprofloxacin Hcl*) 500 Mg Tablet, 500 MG PO BID, #14 TAB PER PT STARTED TX ON 11-30-16 12/06/16 Famotidine* (Famotidine*) 20 Mg Tablet, 20 MG PO DAILY, #30 TAB 12/06/16 Allergies Allergies: Coded Allergies: No Known Allergy (Unverified , 10/20/16) PMhx/Soc History of Surgery: Yes (LT WRIST SX, MILIND CORNEA REPLACE) Anesthesia Reaction: No Hx Neurological Disorder: No Hx Respiratory Disorders: No Hx Cardiac Disorders: No Hx Psychiatric Problems: No Hx Miscellaneous Medical Probl: No Hx Alcohol Use: No Hx Substance Use: No Hx Tobacco Use: No Physical Exam Vitals Vital Signs Date Time Temp Pulse Resp B/P Pulse Ox O2 Delivery O2 Flow Rate FiO2 04/14/17 10:36 98.1 87 18 135/87 99 Physical Exam Patient is in no acute distress, vital signs stable. Alert and fully oriented. EYES: PERRLA, EOMI, Sclera and conjunctiva appear normal. OS: no corneal abrasion EARS: Canals clear, tympanic membranes WNL THROAT: Normal oropharynx. NECK: Supple, No lymphadenopathy. Full ROM without pain or tenderness. HEART: RRR, no rubs, murmurs, clicks or gallops. LUNGS: Clear to auscultation. ABDOMEN: Soft, non-tender without masses or hepatosplenomegaly. EXTREMITIES: No edema bilaterally. MUSC: Full ROM, no deformity, normal back exam NEURO: left face: decreased sensation to light touch, mild smile asymmetry. Procedures/MDM 46 year old male, presents complaining of one-week with unilateral facial weakness. Differential diagnosis includes but not limited to: Neuropathy , otitis media, Lyme disease, stroke. 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 The patient will be discharged home with a prescription for acyclovir and prednisone and follow-up in 2-4 days with his primary physician. Departure Diagnosis: Primary Impression: Castillo's palsy Condition: Stable Patient Instructions: Castillo's Palsy Additional Instructions: Muchas elyse por [facility] para perry servicio. Esperamos que en perry visita a la marina de emergencia perry problema medico haya sido solucionado y que se sienta mucho mejor. Para estar seguros que perry mejoria sigue en proceso, le pedimos el favor de hacer rebecca domingo de seguimiento medico con perry doctor primario en los proximos 2-4 guzman. Lleve con usted estos documentos y las medicinas recetadas. Si graciela sintomas empeoran y no puede carly a perry doctor, por favor regrese a marina de emergencia. KEON-VIVI MI MD Apr 14, 2017 11:53
[2017-04-14] MEDS ORDERED: ACYC800T57 PO (11:58)
[2017-04-14] MEDS ORDERED: PRED20TA PO (11:58)
== END 2017-04-14 12:35 | disposition home or self-care (01) ==
LOC: FTE 10:32
DX: G51.0 Bell's palsy (principal)
CPT/HCPCS: 99284

== ENCOUNTER 2017-08-31 05:11 | Emergency (ER) | END 2017-08-31 12:08 | disposition home or self-care (01) ==

== ENCOUNTER 2017-11-07 09:01 | Day surgery (SDC) | END 2017-11-07 12:09 | disposition home or self-care (01) ==